=== PATIENT | male | born 1965 | race Hispanic/Latino ===

== ENCOUNTER 2019-07-20 07:14 | Day surgery (SDC) | payer MEDICARE, OTHER ==
[2019-07-20] MEDS ORDERED: SODIUM CHLORIDE 0.9% 1000 ML 1,000 ML ONE (07:53)
[2019-07-20] MEDS ORDERED: LIDOCAINE MPF (2%) 20 MG/1 ML VIAL 5 ML ONE (08:30)
[2019-07-20] MEDS ORDERED: SODIUM CHLORIDE 0.9% 1000 ML 1,000 ML IV SCH (08:30)
[2019-07-20] MEDS ORDERED: WATER FOR IRRIG STERILE 1,000 ML BOTTLE ONE (08:31)
[2019-07-20] MEDS ORDERED: WATER FOR IRRIG STERILE 250 ML BOTTLE IR ONE (08:31)
--- NOTE | 2019-07-20 08:35 | Anesthesia Day of Surgery ---
Anesthesia Day of Surgery - Day of Surgery Patient Examined: Yes Patient H&P Reviewed: Yes Patient is NPO: Yes
--- NOTE | 2019-07-20 08:35 | Anesthesia Consultation ---
Anesthesia Consult and Med Hx Date of service: 07/20/19 - Airway Anesthetic Teeth Evaluation: Poor, Chipped ROM Head & Neck: Adequate Mental/Hyoid Distance: Adequate Mallampati Class: Class III Intubation Access Assessment: Possibly Difficult - Pulmonary Exam CTA: Yes - Cardiac Exam Cardiac Exam: RRR - Pre-Operative Health Status ASA Pre-Surgery Classification: ASA2 Proposed Anesthetic Plan: MAC - Pulmonary Hx Smoking: Yes (CHEWING TOBACCO DAILY) - Cardiovascular System Hx Hypertension: Yes - Central Nervous System Hx Back Pain: Yes - Gastrointestinal Hx Gastroesophageal Reflux Disease: Yes - Endocrine Hx Non-Insulin Dependent Diabetes: Yes
[2019-07-20] MEDS ORDERED: PROPOFOL 200 MG/20 ML VIAL IV ONE ×2 (08:42)
--- NOTE | 2019-07-20 09:02 | Procedure Note ---
Date of procedure: 07/20/19 Pre-op diagnosis: Dysphagia Post-op diagnosis: other (Miold,Benign Esophagel Stenosis (s/p 20 mm balloon dilation)/Mild to Moderate Distal Erosive Esophagitis/ R/O Eosinophilic Esophagitis/Gastritis/R/O Celiac Disease) Procedure: EGD with biopsy and 20 mm Balloon Dilation [place] [facility] [place]: MOOSE INMAN Estimated blood loss: minimal Pathology: list Specimen disposition: to lab Condition: stable Disposition: same day (Treat with PPI. Avoid aspirin and NSAID for 4 days; ot herwise resume home medication and follow up in 1 to 2 weeks ([phone]).)
--- NOTE | 2019-07-20 09:04 | Operative Report ---
PROCEDURE: Esophagogastroduodenoscopy with biopsy and balloon dilation. INDICATIONS: A 54-year-old white male with an underlying history of diabetes mellitus, hypertension, who has lately been having problems with dysphagia. EGD was done to assess for the problem. DESCRIPTION OF PROCEDURE: Procedure was done after getting informed consent with MAC anesthesia. Instrument was passed through the hypopharynx into the esophagus, which showed mild to moderate distal erosive esophagitis and mild benign esophageal stenosis. This was dilated at the end of the procedure with a 20 mm balloon that was maintained for a minute. Biopsy was done from the midesophagus to rule out for possible eosinophilic esophagitis. Stomach showed mild gastritis. The pylorus is patent. The duodenum in the first and the second portion appeared normal. Biopsy was done from the second part to rule out for possible celiac disease. Additional biopsy was done from the gastric antrum, gastric body and angular incisura to rule out for H. pylori and atrophic gastritis. There was minimal bleeding associated with the procedure. No complications associated with the procedure. ASSESSMENT: Dysphagia, mild benign esophageal stenosis, status post esophageal balloon dilation, rule out eosinophilic esophagitis, mild to moderate distal erosive esophagitis, gastritis, rule out celiac disease. PLAN: To treat the patient with PPI, have the patient avoid aspirin and aspirin-related products for the next 4-5 days, but otherwise resume home medication. Await for the biopsy results. Further treatment adjustment will be according to the biopsy findings. The patient will be asked to follow up in the office in 1-2 weeks' time. The procedure was done in the GI lab with assistance of the GI lab team, which included JARED Stuart and Pratibha bentley and with assistance of Anesthesia. JOB# [id number] JOHN/TAMMI
[2019-07-20 09:30] VITALS: BP 118/60
--- NOTE | 2019-07-20 14:52 | Post Anesthesia Evaluation ---
- Post Anesthesia Evaluation Patient Participated: Yes Airway Patent: Yes Stable Respiratory Function: Yes Nausea/Vomiting: No Temp > 96.8F: Yes Pain Manageable: Yes Adequeate Hydration: Yes Anesthesia Complications: No Block Receding Appropriately: Not Applicable Patient on Ventilator: No
== END 2019-07-20 07:15 | disposition home or self-care (01) ==
LOC: GIO 07:14
DX: K21.0 Gastro-esophageal reflux disease with esophagitis (principal); K22.2 Esophageal obstruction; R13.10 Dysphagia, unspecified; E11.9 Type 2 diabetes mellitus without complications; K29.50 Unspecified chronic gastritis without bleeding; F17.210 Nicotine dependence, cigarettes, uncomplicated; E78.00 Pure hypercholesterolemia, unspecified; I10 Essential (primary) hypertension; M19.90 Unspecified osteoarthritis, unspecified site; Z98.890 Other specified postprocedural states; Z79.899 Other long term (current) drug therapy; Z79.84 Long term (current) use of oral hypoglycemic drugs
CPT/HCPCS: 43239; 43249; 82962; 88305; 88342; C1726; J2704; J7030